=== PATIENT | female | born 1960 | race African-American/Black ===

== ENCOUNTER 2021-01-23 09:00 | Outpatient (CLI) | payer BC | END 2021-01-23 09:01 | disposition home or self-care (01) | LOC: CSHULT 09:00 | PROVIDERS: ATTEND Physician Assistant | DX: N64.59 Other signs and symptoms in breast (principal) | CPT/HCPCS: G0279 ==

== ENCOUNTER 2022-03-10 10:00 | Outpatient (CLI) | payer BC | END 2022-03-10 10:01 | disposition home or self-care (01) | LOC: CSHMAMMO 10:00 | PROVIDERS: ATTEND Family Medicine | DX: Z12.31 Encounter for screening mammogram for malignant neoplasm of breast (principal); Z80.3 Family history of malignant neoplasm of breast | CPT/HCPCS: 77063; 77067 ==